=== PATIENT | female | born 1930 | race Caucasian/White ===

== ENCOUNTER 2016-09-17 13:57 | Emergency (ER) | payer MEDICARE, BC ==
[~2016-09-17 13:57] MED LIST: CARAFATE 1GM1 G PO; COZAAR 50MG50 MG/TAB PO; FISH OIL500 M2 PO; GLIPIZIDE ER2.5 MG PO; LEVOTHYROXINE PO; MULTIVITAMIN1 SGL PO; PANTOPRAZOLE SO40 MG PO; PREDNISONE20 MG PO
[2016-09-17] MEDS ORDERED: AREDIA (13:58)
[2016-09-17] MEDS ORDERED: TAMIFLU 75MG75 MG PO (13:59)
[2016-09-17] MEDS ORDERED: CODEINE/GUAIFE120 M2 PO (14:00)
[2016-09-17] MEDS ORDERED: TESSALON PERLE100 M1 PO (15:14)
== END 2016-09-17 15:25 | disposition home or self-care (01) ==
LOC: ED 13:57
DX: J11.1 Influenza due to unidentified influenza virus with other respiratory manifestations (principal); K21.9 Gastro-esophageal reflux disease without esophagitis

== ENCOUNTER → 2016-09-19 | Outpatient (CLI) | payer MEDICARE, BC ==
[~2016-09-19] MED LIST changes: +AREDIA; +CEFDINIR300 MG PO; +CODEINE/GUAIFE120 M2 PO; +MACROBID 100 M100 MG PO; +TAMIFLU 75MG75 MG PO; +TESSALON PERLE100 M1 PO; +VALIUM 5MG T5 MG/TAB PO; +ZOFRAN ODT4 MG PO
[2016-09-19 09:45] VITALS: BP 179/93
[2016-09-19 11:10] VITALS: BP 143/85
== END ==
LOC: AMSURD 09:21
DX: R05 Cough (principal); E86.0 Dehydration
CPT/HCPCS: J1885; J2405; J2930; J7030

== ENCOUNTER 2016-09-20 11:10 | Emergency (ER) | payer MEDICARE, BC ==
[~2016-09-20 11:10] MED LIST changes: -CEFDINIR300 MG PO; -MACROBID 100 M100 MG PO; -VALIUM 5MG T5 MG/TAB PO; -ZOFRAN ODT4 MG PO
[2016-09-20 12:42] VITALS: BP 148/64
== END 2016-09-20 12:44 | disposition home or self-care (01) ==
LOC: ED 11:10
DX: R05 Cough (principal); Z87.09 Personal history of other diseases of the respiratory system; F41.9 Anxiety disorder, unspecified; E11.9 Type 2 diabetes mellitus without complications; I10 Essential (primary) hypertension
CPT/HCPCS: J1885

== ENCOUNTER → 2016-09-20 | Day surgery (SDC) | payer MEDICARE, BC | LOC: MSO 12:32 | DX: K22.2 Esophageal obstruction (principal); R13.10 Dysphagia, unspecified | CPT/HCPCS: 00740; A4649; J7030 ==

== ENCOUNTER 2016-09-22 12:04 | Observation (INO) | payer MEDICARE, BC ==
[2016-09-22 15:07] VITALS: BP 133/66
[2016-09-22 16:03] VITALS: BP 153/69
[2016-09-22 17:12] VITALS: BP 153/69
[2016-09-22 18:25] VITALS: BP 118/72
[2016-09-22 22:47] VITALS: BP 144/72
[2016-09-23 02:51] VITALS: BP 145/64
[2016-09-23 06:22] VITALS: BP 144/74
[2016-09-23] MEDS ORDERED: VALIUM 5MG T5 MG/TAB PO (09:02)
[2016-09-23] MEDS ORDERED: MACROBID 100 M100 MG PO (09:02)
[2016-09-23] MEDS ORDERED: ZOFRAN ODT4 MG PO (09:03)
[2016-09-23 10:23] VITALS: BP 153/75
== END 2016-09-23 10:46 | disposition home or self-care (01) ==
LOC: ED 12:04 → MED/SURG 15:49
PROVIDERS: ADMIT Physician Assistant
DX: J11.1 Influenza due to unidentified influenza virus with other respiratory manifestations (principal); E46 Unspecified protein-calorie malnutrition; N39.0 Urinary tract infection, site not specified; E87.1 Hypo-osmolality and hyponatremia; E11.8 Type 2 diabetes mellitus with unspecified complications; Z79.84 Long term (current) use of oral hypoglycemic drugs; I10 Essential (primary) hypertension; K21.9 Gastro-esophageal reflux disease without esophagitis; E03.9 Hypothyroidism, unspecified; E80.6 Other disorders of bilirubin metabolism; R11.2 Nausea with vomiting, unspecified; R10.9 Unspecified abdominal pain; F41.9 Anxiety disorder, unspecified; B96.20 Unspecified Escherichia coli [E. coli] as the cause of diseases classified elsewhere
CPT/HCPCS: G0378; J1650; J1815; J7030

== ENCOUNTER → 2016-09-30 | Outpatient (CLI) | payer MEDICARE, BC ==
[~2016-09-30] MED LIST changes: +CEFDINIR300 MG PO; +MACROBID 100 M100 MG PO; +VALIUM 5MG T5 MG/TAB PO; +ZOFRAN ODT4 MG PO
== END ==
LOC: LAB 13:57
DX: R53.81 Other malaise (principal); K21.9 Gastro-esophageal reflux disease without esophagitis; Z87.19 Personal history of other diseases of the digestive system; Z09 Encounter for follow-up examination after completed treatment for conditions other than malignant neoplasm; A09 Infectious gastroenteritis and colitis, unspecified

== ENCOUNTER → 2016-10-04 | Outpatient (CLI) | payer MEDICARE, BC | LOC: LAB 09:40 | DX: K21.9 Gastro-esophageal reflux disease without esophagitis (principal); Z87.19 Personal history of other diseases of the digestive system; A09 Infectious gastroenteritis and colitis, unspecified; R53.81 Other malaise ==

== ENCOUNTER 2016-11-28 10:43 | Emergency (ER) | payer MEDICARE, BC ==
[~2016-11-28 10:43] MED LIST changes: -CEFDINIR300 MG PO
[2016-11-28] MEDS ORDERED: CEFDINIR300 MG PO (11:34)
[2016-11-28 11:48] VITALS: BP 164/78
== END 2016-11-28 11:37 | disposition home or self-care (01) ==
LOC: ED 10:43
DX: J01.00 Acute maxillary sinusitis, unspecified (principal)

== ENCOUNTER → 2016-11-28 | Outpatient (CLI) | payer MEDICARE, BC | LOC: LAB 09:21 | DX: E11.9 Type 2 diabetes mellitus without complications (principal); R53.81 Other malaise; E03.4 Atrophy of thyroid (acquired) ==

== ENCOUNTER → 2016-12-15 | Outpatient (CLI) | payer MEDICARE, BC ==
[2016-11-28 11:48] VITALS: BP 164/78
[~2016-12-15] MED LIST changes: +CEFDINIR300 MG PO
== END ==
LOC: LAB 11:23
DX: R20.2 Paresthesia of skin (principal); R10.84 Generalized abdominal pain; N30.00 Acute cystitis without hematuria

== ENCOUNTER → 2017-01-16 | Outpatient (CLI) | payer MEDICARE, BC | LOC: LAB 15:48 | DX: R10.84 Generalized abdominal pain (principal) ==

== ENCOUNTER → 2017-02-09 | Outpatient (CLI) | payer MEDICARE, BC | LOC: RAD 10:29 | DX: M79.672 Pain in left foot (principal) ==

== ENCOUNTER → 2017-02-13 | Outpatient (CLI) | payer MEDICARE, BC ==
[~2017-02-13] VITALS: Ht 160 cm; Wt 61.4 kg
[2017-02-13 14:18] VITALS: BP 165/76
== END ==
LOC: AMSURD 13:45
DX: N30.00 Acute cystitis without hematuria (principal); R06.02 Shortness of breath

== ENCOUNTER → 2017-04-25 | Outpatient (CLI) | payer MEDICARE, BC ==
[2017-02-13 14:18] VITALS: BP 165/76
== END ==
LOC: LAB 12:01
DX: E65 Localized adiposity (principal); R14.0 Abdominal distension (gaseous); R10.9 Unspecified abdominal pain

== ENCOUNTER → 2017-05-05 | Outpatient (CLI) | payer MEDICARE, BC ==
[2017-02-13 14:18] VITALS: BP 165/76
== END ==
LOC: RAD 10:45
DX: M25.551 Pain in right hip (principal)

== ENCOUNTER → 2017-05-19 | Outpatient (CLI) | payer MEDICARE, BC ==
[2017-02-13 14:18] VITALS: BP 165/76
[2017-05-19 07:19] LABS: EOS # 0.1 (0.04-0.40); EOS % 1.9 % (1.0-5.0); HEMATOCRIT 42.6 % (37.0-47.0); HEMOGLOBIN 14.7 g/dL (12.5-16.0); LYMPH# 1.2 (1.50-4.00); MEAN CELL VOLUME 93 fl (78-100); MEAN CORPUSCULAR HEMOGLOBIN 32 pg (27-31); MEAN CORPUSCULAR HGB CONC 35 g/dL (33-37); MEAN PLATELET VOLUME 9.1 fl (7.4-10.4); MONO # 0.3 (0.20-0.80); NEU # 3.6 (1.40-6.50); PLATELET COUNT 220 K/mm3 (130-400); WHITE BLOOD COUNT 5.3 K/mm3 (4.8-10.8)
[2017-05-19 07:35] LABS: ALBUMIN 4.3 g/dL (3.5-5.0); BUN/CREATININE RATIO 18.5 (6.0-26.0); CALCIUM 10.3 mg/dL (8.4-10.2); POTASSIUM 4.7 mmol/L (3.6-5.0); TOTAL BILIRUBIN 1.3 mg/dL (0.2-1.3); TOTAL PROTEIN 7.8 g/dL (6.3-8.2)
[2017-05-19 08:06] LABS: PH-URINE 6.5 (5.0 - 8.0); URINE APPEARANCE HAZY; URINE BILIRUBIN NEGATIVE (NEGATIVE); URINE BLOOD NEGATIVE (NEGATIVE); URINE COLOR YELLOW; URINE GLUCOSE NEGATIVE (NEGATIVE); URINE KETONE NEGATIVE (NEGATIVE); URINE LEUKOCYTE ESTERASE 1+ (NEGATIVE); URINE NITRATE NEGATIVE (NEGATIVE); URINE PROTEIN(semi-quant) 1+ mg/dL (NEGATIVE); URINE UROBILINOGEN NORMAL (NORMAL)
[2017-05-19 08:24] LABS: ERYTHROCYTE SEDIMENTATION RATE 22 mm/hr (0-30)
== END ==
LOC: LAB 07:05
PROVIDERS: Internal Medicine
DX: I10 Essential (primary) hypertension (principal); E11.9 Type 2 diabetes mellitus without complications; E78.2 Mixed hyperlipidemia; D64.9 Anemia, unspecified; E03.4 Atrophy of thyroid (acquired)

== ENCOUNTER → 2017-05-29 | Outpatient (CLI) | payer MEDICARE, BC ==
[2017-02-13 14:18] VITALS: BP 165/76
[2017-05-29 13:09] LABS: URINE APPEARANCE CLEAR; URINE COLOR YELLOW
[2017-05-29 13:10] LABS: URINE BILIRUBIN NEGATIVE (NEGATIVE); URINE BLOOD NEGATIVE (NEGATIVE); URINE GLUCOSE NEGATIVE (NEGATIVE); URINE KETONE NEGATIVE (NEGATIVE); URINE LEUKOCYTE ESTERASE NEGATIVE (NEGATIVE); URINE NITRATE NEGATIVE (NEGATIVE); URINE PROTEIN(semi-quant) 1+ mg/dL (NEGATIVE); URINE UROBILINOGEN NORMAL (NORMAL)
== END ==
LOC: LAB 11:12
PROVIDERS: Internal Medicine
DX: N39.0 Urinary tract infection, site not specified (principal)

== ENCOUNTER 2017-07-10 10:00 | Outpatient (RCR) | payer MEDICARE, BC ==
[2017-02-13 14:18] VITALS: BP 165/76
== END 2017-07-10 10:30 | disposition home or self-care (01) ==
LOC: PT 10:00
DX: M54.31 Sciatica, right side (principal)
CPT/HCPCS: G8978-GP; G8979-GP

== ENCOUNTER → 2017-08-29 | Outpatient (CLI) | payer MEDICARE, BC ==
[2017-02-13 14:18] VITALS: BP 165/76
[2017-08-29 08:12] LABS: ALBUMIN 4.3 g/dL (3.5-5.0); BUN/CREATININE RATIO 18.7 (6.0-26.0); CALCIUM 9.7 mg/dL (8.4-10.2); POTASSIUM 4.4 mmol/L (3.6-5.0); TOTAL BILIRUBIN 1.2 mg/dL (0.2-1.3)
== END ==
LOC: LAB 07:36
PROVIDERS: Internal Medicine
DX: E11.9 Type 2 diabetes mellitus without complications (principal); I10 Essential (primary) hypertension

== ENCOUNTER → 2017-09-26 | Outpatient (CLI) | payer MEDICARE, BC ==
[2017-02-13 14:18] VITALS: BP 165/76
[2017-09-26 12:28] LABS: URINE COLOR YELLOW
[2017-09-26 12:29] LABS: PH-URINE 6.5 (5.0 - 8.0); URINE APPEARANCE CLEAR; URINE BILIRUBIN NEGATIVE (NEGATIVE); URINE BLOOD NEGATIVE (NEGATIVE); URINE GLUCOSE NEGATIVE (NEGATIVE); URINE KETONE NEGATIVE (NEGATIVE); URINE NITRATE NEGATIVE (NEGATIVE); URINE PROTEIN(semi-quant) NEGATIVE (NEGATIVE); URINE UROBILINOGEN NORMAL (NORMAL)
[2017-09-26 12:30] LABS: URINE LEUKOCYTE ESTERASE TRACE (NEGATIVE)
== END ==
LOC: LAB 11:34
PROVIDERS: Internal Medicine
DX: R30.0 Dysuria (principal)

== ENCOUNTER → 2017-10-13 | Outpatient (CLI) | payer MEDICARE, BC ==
[2017-02-13 14:18] VITALS: BP 165/76
[2017-10-13 11:51] LABS: PH-URINE 5.5 (5.0 - 8.0); URINE APPEARANCE CLEAR; URINE BILIRUBIN NEGATIVE (NEGATIVE); URINE BLOOD NEGATIVE (NEGATIVE); URINE COLOR YELLOW; URINE GLUCOSE NEGATIVE (NEGATIVE); URINE KETONE NEGATIVE (NEGATIVE); URINE LEUKOCYTE ESTERASE 1+ (NEGATIVE); URINE NITRATE NEGATIVE (NEGATIVE); URINE PROTEIN(semi-quant) NEGATIVE (NEGATIVE); URINE UROBILINOGEN NORMAL (NORMAL)
== END ==
LOC: LAB 10:49
PROVIDERS: Internal Medicine
DX: N39.0 Urinary tract infection, site not specified (principal); Z88.1 Allergy status to other antibiotic agents; Z88.5 Allergy status to narcotic agent; Z88.8 Allergy status to other drugs, medicaments and biological substances

== ENCOUNTER 2017-11-01 16:00 | Emergency (ER) | payer MEDICARE, BC ==
[~2017-11-01] VITALS: Ht 160 cm; Wt 60.0 kg
[2017-11-01] MEDS ORDERED: PROBIOTIC1 EAC1 PO (16:19)
[2017-11-01] MEDS ORDERED: PRESERVISION A1 EAC1 (16:20)
[2017-11-01 17:37] VITALS: BP 169/66
== END 2017-11-01 17:38 | disposition home or self-care (01) ==
LOC: ED 16:00
DX: I10 Essential (primary) hypertension (principal); E03.9 Hypothyroidism, unspecified; Z88.1 Allergy status to other antibiotic agents; Z88.5 Allergy status to narcotic agent; Z88.8 Allergy status to other drugs, medicaments and biological substances

== ENCOUNTER → 2018-01-19 | Outpatient (CLI) | payer MEDICARE, BC ==
[~2018-01-19] MED LIST changes: +PRESERVISION A1 EAC1; +PROBIOTIC1 EAC1 PO
[2018-01-19 10:25] LABS: EOS # 0.1 (0.04-0.40); EOS % 1.9 % (1.0-5.0); HEMATOCRIT 43.2 % (37.0-47.0); HEMOGLOBIN 14.7 g/dL (12.5-16.0); LYMPH# 1.4 (1.50-4.00); MEAN CELL VOLUME 94 fl (78-100); MEAN CORPUSCULAR HEMOGLOBIN 32 pg (27-31); MEAN CORPUSCULAR HGB CONC 34 g/dL (33-37); MEAN PLATELET VOLUME 9.8 fl (7.4-10.4); MONO # 0.5 (0.20-0.80); NEU # 3.7 (1.40-6.50); PLATELET COUNT 190 K/mm3 (130-400); RED BLOOD COUNT 4.61 M/mm3 (4.10-5.30); RED CELL DISTRIBUTION WIDTH 12.3 % (11.5-14.5); WHITE BLOOD COUNT 5.7 K/mm3 (4.8-10.8)
[2018-01-19 10:44] LABS: ALBUMIN 4.3 g/dL (3.5-5.0); BUN/CREATININE RATIO 24.3 (6.0-26.0); CALCIUM 9.5 mg/dL (8.4-10.2); POTASSIUM 4.7 mmol/L (3.6-5.0); TOTAL BILIRUBIN 1.2 mg/dL (0.2-1.3); TOTAL PROTEIN 7.8 g/dL (6.3-8.2)
[2018-01-19 12:17] LABS: URINE APPEARANCE CLEAR; URINE BILIRUBIN NEGATIVE (NEGATIVE); URINE BLOOD NEGATIVE (NEGATIVE); URINE COLOR YELLOW; URINE GLUCOSE NEGATIVE (NEGATIVE); URINE KETONE NEGATIVE (NEGATIVE); URINE LEUKOCYTE ESTERASE 1+ (NEGATIVE); URINE NITRATE NEGATIVE (NEGATIVE); URINE PROTEIN(semi-quant) TRACE mg/dL (NEGATIVE); URINE UROBILINOGEN NORMAL (NORMAL)
[2018-01-19 12:18] LABS: URINE MUCUS PRESENT (NOT PRESENT)
[2018-01-19 12:47] LABS: ERYTHROCYTE SEDIMENTATION RATE 17 mm/hr (0-30)
== END ==
LOC: LAB 10:09
PROVIDERS: Internal Medicine
DX: Z12.11 Encounter for screening for malignant neoplasm of colon (principal); I10 Essential (primary) hypertension; E11.9 Type 2 diabetes mellitus without complications; E03.9 Hypothyroidism, unspecified; K90.9 Intestinal malabsorption, unspecified

== ENCOUNTER → 2018-01-25 | Outpatient (CLI) | payer MEDICARE, BC | LOC: LAB 12:43 | DX: Z12.11 Encounter for screening for malignant neoplasm of colon (principal); E11.9 Type 2 diabetes mellitus without complications; I10 Essential (primary) hypertension ==

== ENCOUNTER → 2018-05-17 | Outpatient (CLI) | payer MEDICARE, BC ==
[2018-05-17 10:08] LABS: ALBUMIN 4.2 g/dL (3.5-5.0); CALCIUM 9.7 mg/dL (8.4-10.2); POTASSIUM 4.9 mmol/L (3.6-5.0); TOTAL BILIRUBIN 1.7 mg/dL (0.2-1.3); TOTAL PROTEIN 7.4 g/dL (6.3-8.2)
== END ==
LOC: LAB 09:33
PROVIDERS: Internal Medicine
DX: I10 Essential (primary) hypertension (principal); E11.9 Type 2 diabetes mellitus without complications

== ENCOUNTER → 2018-06-15 | Outpatient (CLI) | payer MEDICARE, BC ==
[2018-06-15 09:09] LABS: ALBUMIN 4.4 g/dL (3.5-5.0); CALCIUM 9.7 mg/dL (8.4-10.2); POTASSIUM 4.2 mmol/L (3.6-5.0); TOTAL BILIRUBIN 1.4 mg/dL (0.2-1.3); TOTAL PROTEIN 7.4 g/dL (6.3-8.2)
== END ==
LOC: LAB 08:46
PROVIDERS: Internal Medicine
DX: I10 Essential (primary) hypertension (principal); E11.9 Type 2 diabetes mellitus without complications

== ENCOUNTER → 2018-08-06 | Outpatient (CLI) | payer MEDICARE, BC ==
[2018-08-06 07:55] LABS: EOS # 0.2 (0.04-0.40); EOS % 3.9 % (1.0-5.0); HEMATOCRIT 41.6 % (37.0-47.0); HEMOGLOBIN 14.1 g/dL (12.5-16.0); LYMPH# 1.5 (1.50-4.00); MEAN CELL VOLUME 96 fl (78-100); MEAN CORPUSCULAR HEMOGLOBIN 32 pg (27-31); MEAN CORPUSCULAR HGB CONC 34 g/dL (33-37); MEAN PLATELET VOLUME 9.6 fl (7.4-10.4); MONO # 0.3 (0.20-0.80); NEU # 2.2 (1.40-6.50); PLATELET COUNT 214 K/mm3 (130-400); RED BLOOD COUNT 4.35 M/mm3 (4.10-5.30); RED CELL DISTRIBUTION WIDTH 12.4 % (11.5-14.5); WHITE BLOOD COUNT 4.1 K/mm3 (4.8-10.8)
[2018-08-06 08:11] LABS: ALBUMIN 4.4 g/dL (3.5-5.0); POTASSIUM 4.5 mmol/L (3.6-5.0); TOTAL BILIRUBIN 1.6 mg/dL (0.2-1.3); TOTAL PROTEIN 7.6 g/dL (6.3-8.2)
== END ==
LOC: LAB 07:36
PROVIDERS: Internal Medicine
DX: E11.9 Type 2 diabetes mellitus without complications (principal); I10 Essential (primary) hypertension; K90.9 Intestinal malabsorption, unspecified

== ENCOUNTER → 2018-08-14 | Outpatient (CLI) | payer MEDICARE, BC | LOC: LAB 12:42 | DX: R15.9 Full incontinence of feces (principal) ==

== ENCOUNTER → 2018-08-17 | Outpatient (CLI) | payer MEDICARE, BC | LOC: LAB 09:16 | DX: R10.9 Unspecified abdominal pain (principal) ==